=== PATIENT | female | born 1955 | race Caucasian/White ===

== ENCOUNTER 2021-02-02 05:37 | Inpatient (IN) | payer BC, MEDICARE ==
[2021-02-02] MEDS ORDERED: Bupivacaine 0.5% 30 ML SDV ONE (06:36)
[2021-02-02] MEDS ORDERED: Povidone-Iodine 10% Soln 118.25 ML Bottle ONE (06:36)
[2021-02-02] MEDS ORDERED: ceFAZolin 2 GM in Sodium Chloride 0.9% 100 ML IV ONE (07:00)
[2021-02-02] MEDS ORDERED: Lactated Ringers 1,000 ML IV SCH (07:00)
[2021-02-02] MEDS ORDERED: Propofol 200 MG/20 ML SDV ONE (07:22)
[2021-02-02] MEDS ORDERED: Midazolam 1 MG/ML 2 ML SDV ONE ×2 (07:22→08:29)
[2021-02-02] MEDS ORDERED: fentaNYL 100 MCG/2 ML SDV ONE (07:22)
[2021-02-02] MEDS ORDERED: ceFAZolin 2 GM in Premix Bag 1 BAG IV ONE (07:30)
[2021-02-02] MEDS ORDERED: Lactated Ringers 1,000 ML ONE (08:15)
[2021-02-02] MEDS ORDERED: Acetaminophen 325 MG Tab PO PRN (09:20)
[2021-02-02] MEDS ORDERED: ceFAZolin 1 GM in Sodium Chloride 0.9% 50 ML IV SCH (09:30)
[2021-02-02] MEDS ORDERED: Sodium Chloride 0.9% 1,000 ML IV SCH (09:30)
[2021-02-02] MEDS: Morphine 2 MG/ML SYRINGE IVPUSH PRN ×3 (10:46→22:32)
[2021-02-02] MEDS: Ketorolac 30 MG/ML SDV IVPUSH PRN ×2 (10:55→21:38)
[2021-02-02] MEDS: Acetaminophen/oxyCODONE 325-5 MG Tab PO PRN ×4 (11:27→23:55)
[2021-02-02] MEDS: Triamcinolone Acetonide 0.1% Crm 15 GM Tube TOP SCH ×2 (14:11→21:46)
--- NOTE | 2021-02-02 16:03 | OR ---
DATE OF PROCEDURE: 02/02/2021 SURGEON: Richardson Sullivan MD PREOPERATIVE DIAGNOSIS: Osteoarthritis, medial compartment, left knee. POSTOPERATIVE DIAGNOSIS: Osteoarthritis, medial compartment, left knee. PROCEDURE PERFORMED: Left medial unicompartmental arthroplasty utilizing [employer] Oxin[employer] components with a size D femur, 2 tibia, [address] HIGHWAY MAINTAINER: AMIRA Isbell ANESTHESIA: Spinal with sedation. INDICATIONS: Ivonne is a 65-year-old female with a history of medial knee pain after a fall. X-ray and MRI reveal medial meniscus tear and degenerative changes of the medial compartment with articular cartilage loss and subchondral edema. Patellofemoral and lateral compartments appear intact, and she therefore presents for a medial unicompartmental arthroplasty. Risks, benefits, and potential complications of the procedure were discussed. DESCRIPTION OF PROCEDURE: After adequate anesthesia was obtained, the patient was placed supine with a tourniquet about the left upper thigh. The left leg was prepped and draped in a sterile fashion. Leg was exsanguinated and tourniquet inflated to 300 mmHg pressure. A longitudinal incision was made just slightly medial of midline and carried down through the subcutaneous tissues, and a medial parapatellar arthrotomy was performed. The anterior horn of the medial meniscus was excised. The knee was flexed and the articular cartilage inspected with a full-thickness cartilage loss in the majority of the weightbearing surface of the medial femoral condyle. The anterior lip of the tibial plateau was resected. The leg was extended, and the extramedullary alignment jig was aligned and secured to the femur and tibia. Distal femoral cut was then made. This portion of the guide was removed. The knee was flexed, and the proximal tibia was resected with reciprocating and oscillating saws. Remaining meniscus was excised. The knee was flexed, and the 8 mm gapper with the femoral cutting jig was placed with the D showing excellent fit. This was secured to the femur. Peg holes and remaining cuts were then made. The guide was removed along with the bone cuts. Tibia was then sized to a 2 component. A 2 trial was tapped into position. Peg holes were drilled. The femoral trial was placed, and the knee was then trialed with an 8 mm spacer. This was excessively tight in both flexion and extension, and the 2 mm spacer could not be inserted. The tibia was recut at an additional 2 mm. Trials were again placed with an 8 mm spacer then showing good balance in flexion and extension with 2 mm gap. Trials were removed. The knee was thoroughly irrigated with pulse lavage. The bone surfaces were dried. Components were cemented in place. Excess cement was removed, and the knee was held in full extension with the trial insert and the 2 mm spacing gap as the cement cured. The knee was again taken through range of motion. Balance was checked with a 2 mm spacer. The trial was removed. The final 8 mm polyethylene was snapped into position. The knee was irrigated once again. This was followed by a dilute Betadine irrigation which was left in place for 2 minutes and then irrigated with pulse lavage. The medial capsule was closed with #2 Ethibond in a running fashion. Skin was closed with 2-0 Vicryl and a running 3-0 Monocryl. Steri-Strips were applied. Sterile dressing was then placed with a light compressive dressing. The patient tolerated the procedure well. There were no complications. Tourniquet time was 58 minutes. She was taken from the operating room in stable condition. Richardson Sullivan MD /[id number]
[2021-02-02] MEDS: Nozin Nasal Sanitizer NASBOTH SCH ×3 (17:28→21:45)
[2021-02-02] MEDS: ceFAZolin 1 GM in Premix Bag 1 BAG IV SCH (17:39)
[2021-02-02] MEDS: Ondansetron 4 MG/2 ML SDV IVPUSH PRN (21:39)
[2021-02-02] MEDS: Docusate Sodium 100 MG Cap PO SCH (21:48)
[2021-02-03] MEDS: ceFAZolin 1 GM in Premix Bag 1 BAG IV SCH ×2 (03:14→10:57)
[2021-02-03] MEDS: Acetaminophen/oxyCODONE 325-5 MG Tab PO PRN ×2 (04:34→08:28)
[2021-02-03] MEDS: Enoxaparin 30 MG/0.3 ML Syringe SUBCUT SCH (08:04)
[2021-02-03] MEDS: Nozin Nasal Sanitizer NASBOTH SCH ×2 (08:04→21:00)
[2021-02-03] MEDS: Docusate Sodium 100 MG Cap PO SCH ×2 (08:04→21:00)
[2021-02-03] MEDS: Ferrous Sulfate 325 MG Tab PO SCH (08:04)
[2021-02-03] MEDS: Triamcinolone Acetonide 0.1% Crm 15 GM Tube TOP SCH ×3 (08:04→21:00)
--- NOTE | 2021-02-03 08:26 | PCM.SURGPN ---
- General Info Date of Service: 02/03/21 Date of Surgery/Procedure: 02/02/21 POD#: 1 Functional Status: Reports: Tolerating Diet - Review of Systems General: Denies: Fever, Malaise, Chills HEENT: Denies: Visual Changes Pulmonary: Denies: Shortness of Breath Cardiovascular: Denies: Chest Pain, Palpitations Gastrointestinal: Denies: Nausea, Vomiting Musculoskeletal: Reports: Leg Pain (left ), Joint Pain (left knee ), Joint Swelling (left knee ) Neurological: Reports: No Symptoms Psychiatric: Reports: No Symptoms - Patient Data Vitals - Most Recent: Last Vital Signs Temp 95.8 F L 02/03/21 08:02 Pulse 68 02/03/21 08:02 Resp 16 02/03/21 08:02 BP 139/75 02/03/21 08:02 Pulse Ox 95 02/03/21 08:02 Weight - Most Recent: 168 lb 12.8 oz I&O - Last 24 Hours: Intake & Output 02/02/21 02/03/21 02/03/21 22:59 06:59 14:59 Intake Total 3557 Output Total 950 650 Balance 2607 -650 Lab Results Last 24 Hrs: Laboratory Results - last 24 hr 02/03/21 Range/Units 04:10 WBC 6.9 (4.5-11.0) K/uL RBC 3.76 (3.30-5.50) M/uL Hgb 11.5 L (12.0-15.0) g/dL Hct 34.9 L (36.0-48.0) % MCV 93 (80-98) fL MCH 31 (27-31) pg MCHC 33 (32-36) % Plt Count 207 (150-400) K/uL Med Orders - Current: Current Medications Acetaminophen (Acetaminophen 325 Mg Tab) 650 mg PO Q4H PRN PRN Reason: Pain/Fever Hydrocodone Bitart/Acetaminophen (Acetaminophen/Hydrocodone 325-5 Mg Tab) 1 tab PO Q4H PRN PRN Reason: Pain (mild 1-3) Bandage/Support Products (Nozin Nasal Juice Scaleman) 1 applic NASBOTH BID [facility] Last Admin: 02/03/21 08:04 Dose: 1 applic Documented by: Docusate Sodium (Docusate Sodium 100 Mg Cap) 100 mg PO BID [facility] Last Admin: 02/03/21 08:04 Dose: 100 mg Documented by: Enoxaparin Sodium (Enoxaparin 30 Mg/0.3 Ml Syringe) 30 mg SUBCUT DAILY [facility] Last Admin: 02/03/21 08:04 Dose: 30 mg Documented by: Ferrous Sulfate (Ferrous Sulfate 325 Mg Tab) 325 mg PO DAILY [facility] Last Admin: 02/03/21 08:04 Dose: 325 mg Documented by: Sodium Chloride (Normal Saline) 1,000 mls @ 125 mls/hr IV ASDIRECTED [facility] Last Admin: 02/02/21 16:28 Dose: 125 mls/hr Documented by: Cefazolin Sodium/Dextrose 1 gm (/ Premix) 50 mls @ 100 mls/hr IV Q8H [facility] Stop: 02/03/21 10:59 Last Admin: 02/03/21 03:14 Dose: 100 mls/hr Documented by: Ketorolac Tromethamine (Ketorolac 30 Mg/Ml Sdv) 15 mg IVPUSH Q8H PRN PRN Reason: Breakthrough Pain Last Admin: 02/02/21 21:38 Dose: 15 mg Documented by: Morphine Sulfate (Morphine 2 Mg/Ml Syringe) 1 mg IVPUSH Q1H PRN PRN Reason: Breakthrough Pain Last Admin: 02/02/21 22:32 Dose: 1 mg Documented by: Ondansetron HCl (Ondansetron 4 Mg/2 Ml Sdv) 4 mg IVPUSH Q4H PRN PRN Reason: Nausea/Vomiting Last Admin: 02/02/21 21:39 Dose: 4 mg Documented by: Oxycodone/Acetaminophen (Acetaminophen/Oxycodone 325-5 Mg Tab) 1 - 2 tab PO Q4H PRN PRN Reason: Pain Last Admin: 02/03/21 04:34 Dose: 2 tab Documented by: Triamcinolone Acetonide (Triamcinolone Acetonide 0.1% Crm 15 Gm Tube) 0 gm TOP TID [facility] Last Admin: 02/03/21 08:04 Dose: Not Given Documented by: Discontinued Medications Bandage/Support Products (Nozin Nasal Juice Scaleman) 1 applic NASBOTH BID [facility] Last Admin: 02/02/21 17:29 Dose: Not Given Documented by: Bupivacaine HCl (Bupivacaine 0.5% 30 Ml Sdv) Confirm Administered Dose 30 ml .ROUTE .STK-MED ONE Stop: 02/02/21 06:37 Fentanyl (Fentanyl 100 Mcg/2 Ml Sdv) Confirm Administered Dose 100 mcg .ROUTE .STK-MED ONE Stop: 02/02/21 07:23 Lactated Ringer's (Ringers, Lactated) 1,000 mls @ 75 mls/hr IV ASDIRECTED [facility] Last Admin: 02/02/21 06:03 Dose: 75 mls/hr Documented by: Cefazolin Sodium/Dextrose 2 gm (/ Premix) 50 mls @ 50 mls/hr IV ONETIME ONE Stop: 02/02/21 08:29 Last Admin: 02/02/21 11:10 Dose: 50 mls/hr Documented by: Lactated Ringer's (Ringers, Lactated) Confirm Administered Dose 1,000 mls @ as directed .ROUTE .STK-MED ONE Stop: 02/02/21 08:16 Midazolam HCl (Midazolam 1 Mg/Ml 2 Ml Sdv) Confirm Administered Dose 2 mg .ROUTE .STK-MED ONE Stop: 02/02/21 07:23 Midazolam HCl (Midazolam 1 Mg/Ml 2 Ml Sdv) Confirm Administered Dose 2 mg .ROUTE .STK-MED ONE Stop: 02/02/21 08:30 Povidone Iodine (Povidone-Iodine 10% Soln 118.25 Ml Bottle) Confirm Administered Dose 1 ml .ROUTE .STK-MED ONE Stop: 02/02/21 06:37 Propofol (Propofol 200 Mg/20 Ml Sdv) Confirm Administered Dose 200 mg .ROUTE .STK-MED ONE Stop: 02/02/21 07:23 - Exam Wound/Incisions: Healing Well, Dressing Dry and Intact, No Drainage Quality Assessment: Urine Catheter, DVT Prophylaxis General: Alert, Oriented, Cooperative Extremities: Pedal Edema, Joint Swelling (left knee ), Leg Pain (left ), Limited Range of Motion (due to postoperative dressing, ). No: Marilyn's Sign Skin: Dry, Intact Neurological: No New Focal Deficit Psy/Mental Status: Alert, Normal Affect, Normal Mood Sepsis Event Note - Evaluation Sepsis Screening Result: No Definite Risk - Focused Exam Vital Signs: Vital Signs Temp Pulse Resp BP Pulse Ox 02/03/21 08:02 95.8 F L 68 16 139/75 95 02/03/21 03:14 95.9 F L 67 18 148/80 H 94 L 02/02/21 22:27 170/88 H 02/02/21 22:00 95.8 F L 62 18 93 L - Problem List & Annotations (1) Status post left partial knee replacement SNOMED Code(s): 428572507, 54914217, 009157471, 284234872 Code(s): Z96.652 - PRESENCE OF LEFT ARTIFICIAL KNEE JOINT Status: Acute Current Visit: Yes (2) Postoperative anemia SNOMED Code(s): 851869639, 780949356 Code(s): D64.9 - ANEMIA, UNSPECIFIED Status: Acute Current Visit: Yes - Problem List Review Problem List Initiated/Reviewed/Updated: Yes - My Orders Last 24 Hours: Active Orders 24 hr Category Date Time Status Patient Status [ADT] Routine ADT 02/02/21 09:20 Active Ambulate [RC] QID Care 02/02/21 09:20 Active Head of Bed Elevation [RC] ASDIRECTED Care 02/02/21 09:20 Active May Shower [RC] ASDIRECTED Care 02/02/21 09:20 Active Neurovascular Check [RC] Q4H Care 02/02/21 09:20 Active Oxygen Therapy [RC] PRN Care 02/02/21 09:20 Active Pneumonia Education [RC] UPON Care 02/02/21 09:20 Active RT Incentive Spirometry [RC] Q1HWA Care 02/02/21 09:20 Active Up to Chair [RC] QID Care 02/02/21 09:20 Active VTE/DVT Education [RC] Click to Edit Care 02/02/21 09:20 Active Wound Care [RC] Q12H Care 02/02/21 09:20 Active Consult to Case Management/Video Editor [CONS] Cons 02/02/21 09:20 Active Routine OT Evaluation and Treatment [CONS] Routine Cons 02/02/21 09:20 Active PT Evaluation and Treatment [CONS] Routine Cons 02/02/21 09:20 Active PT Evaluation and Treatment [CONS] Routine Cons 02/02/21 09:20 Active Regular Diet [DIET] Diet 02/02/21 Breakfast Active Knee 1V or 2V Lt [CR] Routine Exams 02/02/21 09:20 Taken Acetaminophen [TylenoL] Med 02/02/21 09:20 Active 650 mg PO Q4H PRN Acetaminophen/HYDROcodone [[place] 325-5 MG] Med 02/02/21 09:20 Active 1 tab PO Q4H PRN Acetaminophen/oxyCODONE [Percocet 325-5 MG] Med 02/02/21 09:20 Active 1 - 2 tab PO Q4H PRN Docusate Sodium [Colace] Med 02/02/21 21:00 Active 100 mg PO BID Enoxaparin [Lovenox] Med 02/03/21 09:00 Active 30 mg SUBCUT DAILY Ferrous Sulfate Med 02/03/21 09:00 Active 325 mg PO DAILY Ketorolac [Toradol] Med 02/02/21 09:20 Active 15 mg IVPUSH Q8H PRN Morphine Med 02/02/21 09:20 Active 1 mg IVPUSH Q1H PRN Nozin [ Nasal Juice Scaleman] Med 02/02/21 21:00 Active 1 applic NASBOTH BID Ondansetron [Zofran] Med 02/02/21 09:20 Active 4 mg IVPUSH Q4H PRN Sodium Chloride 0.9% [Normal Saline] 1,000 ml Med 02/02/21 09:30 Active IV ASDIRECTED Triamcinolone Acetonide [Triamcinolone Acetonide 0.1% Med 02/02/21 14:00 Active Crm] 0 gm TOP TID ceFAZolin [Ancef 1 GM/50 ML] 1 gm Med 02/02/21 18:30 Active Premix Bag 1 bag IV Q8H Antiembolic Hose [OM.PC] Routine Oth 02/02/21 09:20 Ordered DVT/VTE Prophylaxis Reflex [OM.PC] Routine Oth 02/02/21 09:20 Ordered Ice Therapy [OM.PC] Per Unit Routine Oth 02/02/21 09:20 Ordered Medication Continuation Instructions [OM.PC] Per Unit Oth 02/02/21 09:20 Ordered Routine Oral Care [OM.PC] Routine Oth 02/02/21 09:20 Ordered Sequential Compression Device [OM.PC] Routine Oth 02/02/21 09:20 Ordered Weight bearing status [OM.PC] Routine Oth 02/02/21 09:25 Ordered Resuscitation Status Routine Resus Stat 02/02/21 09:20 Ordered Medication Orders Acetaminophen (Acetaminophen 325 Mg Tab) 650 mg PO Q4H PRN PRN Reason: Pain/Fever Hydrocodone Bitart/Acetaminophen (Acetaminophen/Hydrocodone 325-5 Mg Tab) 1 tab PO Q4H PRN PRN Reason: Pain (mild 1-3) Bandage/Support Products (Nozin Nasal Juice Scaleman) 1 applic NASBOTH BID [facility] Last Admin: 02/03/21 08:04 Dose: 1 applic Documented by: Admin: 02/02/21 21:45 Dose: 1 applic Documented by: JAIRO Docusate Sodium (Docusate Sodium 100 Mg Cap) 100 mg PO BID [facility] Last Admin: 02/03/21 08:04 Dose: 100 mg Documented by: Admin: 02/02/21 21:48 Dose: 100 mg Documented by: JAIRO Enoxaparin Sodium (Enoxaparin 30 Mg/0.3 Ml Syringe) 30 mg SUBCUT DAILY [facility] Last Admin: 02/03/21 08:04 Dose: 30 mg Documented by: ARTEMIO Ferrous Sulfate (Ferrous Sulfate 325 Mg Tab) 325 mg PO DAILY [facility] Last Admin: 02/03/21 08:04 Dose: 325 mg Documented by: ARTEMIO Sodium Chloride (Normal Saline) 1,000 mls @ 125 mls/hr IV ASDIRECTED [facility] Last Admin: 02/02/21 16:28 Dose: 125 mls/hr Documented by: JAIRO Cefazolin Sodium/Dextrose 1 gm (/ Premix) 50 mls @ 100 mls/hr IV Q8H [facility] Stop: 02/03/21 10:59 Last Admin: 02/03/21 03:14 Dose: 100 mls/hr Documented by: Infusion: 02/02/21 18:09 Dose: 100 mls/hr Documented by: Admin: 02/02/21 17:39 Dose: 100 mls/hr Documented by: JAIRO Ketorolac Tromethamine (Ketorolac 30 Mg/Ml Sdv) 15 mg IVPUSH Q8H PRN PRN Reason: Breakthrough Pain Last Admin: 02/02/21 21:38 Dose: 15 mg Documented by: Admin: 02/02/21 10:55 Dose: 15 mg Documented by: KAYCEE Morphine Sulfate (Morphine 2 Mg/Ml Syringe) 1 mg IVPUSH Q1H PRN PRN Reason: Breakthrough Pain Last Admin: 02/02/21 22:32 Dose: 1 mg Documented by: Admin: 02/02/21 13:40 Dose: 1 mg Documented by: Admin: 02/02/21 10:46 Dose: 1 mg Documented by: KAYCEE Ondansetron HCl (Ondansetron 4 Mg/2 Ml Sdv) 4 mg IVPUSH Q4H PRN PRN Reason: Nausea/Vomiting Last Admin: 02/02/21 21:39 Dose: 4 mg Documented by: JAIRO Oxycodone/Acetaminophen (Acetaminophen/Oxycodone 325-5 Mg Tab) 1 - 2 tab PO Q4H PRN PRN Reason: Pain Last Admin: 02/03/21 04:34 Dose: 2 tab Documented by: Admin: 02/02/21 23:55 Dose: 2 tab Documented by: Admin: 02/02/21 19:44 Dose: 2 tab Documented by: Admin: 02/02/21 15:40 Dose: 2 tab Documented by: Admin: 02/02/21 11:27 Dose: 2 tab Documented by: KAYCEE Triamcinolone Acetonide (Triamcinolone Acetonide 0.1% Crm 15 Gm Tube) 0 gm TOP TID [facility] Last Admin: 02/03/21 08:04 Dose: Not Given Documented by: Admin: 02/02/21 21:46 Dose: Not Given Documented by: Admin: 02/02/21 14:11 Dose: Not Given Documented by: KAYCEE - Assessment Assessment (Free Text/Narrative):: Patient is a very pleasant 65-year-old female, status post left partial knee arthroplasty of the medial compartment, postop day #1. Patient had no acute events overnight. Patient remains hemodynamically stable. Blood pressures have been slightly elevated, likely attributed to postoperative pain. Patient has had a difficult time with pain control postoperatively. Was nauseous yesterday with administration of pain medication, patient had not eaten prior to medication administration. Has since been eating something to coincide with administration of pain medication and reports less nausea. Patient did transfer from bed to chair yesterday evening with FWW and nursing staff. Did become flushed and lightheaded with initial attempt at transfer, felt more stable on second attempt. Has not ambulated further than transfer to chair at this time. Endorsed throbbing in the knee at rest, made worse with motion or attempts to weight bear yesterday. Denied calf pain. Denied numbness or tingling to LLE. POD#1 HgB declined to 11.5. Patient is asymptomatic with this, denied lighthe adedness, dizziness, vision changes, nor dyspnea this morning. Patient will require inpatient status at this time to obtain adequate pain control with PO medications, post-operative anemia and vital monitoring, and for additional therapy services to progress functional mobility of left lower extremity. Exam: L LE distal neurovascular intact. L LE CIERA dressing is dry and intact. ROM to knee limited from post-operative dressing. Moderate pedal edema. Negative homans sign. Plan: * Continue with physical and occupational therapy services daily while in hospital to progress functional mobility of left lower extremity. * Continue with current pain regimen. Administer with food. * Continue with 30 mg Lovenox subcutaneous daily for chemical DVT/VTE prophylaxis. Bilateral lower extremity SCDs for mechanical prophylaxis. * Postoperative anemia stable at this time. Continue to monitor for symptoms, may recheck CBC if becomes symptomatic. * Continue to monitor q4 hours vitals. * Rosales may be discontinued, pending improved ambulation abilities after morning physical therapy. * IV maintenance fluids discontinued. * Anticipate discharge to home when patient is medically stable and functional mobility of left lower extremity improves. Plan for outpatient physical therapy services at time of discharge.
[2021-02-03] MEDS: Ondansetron 4 MG/2 ML SDV IVPUSH PRN (09:45)
[2021-02-03] MEDS: Acetaminophen/HYDROcodone 325-5 MG Tab PO PRN ×2 (12:30→19:23)
--- NOTE | 2021-02-03 14:41 | CR ---
Knee 1V or 2V Lt CLINICAL HISTORY: Hemiarthroplasty FINDINGS: Patient is status post medial hemiarthroplasty. Components appear well seated. There is intra-articular and subcutaneous air. IMPRESSION: STATUS post medial hemiarthroplasty
[2021-02-03] MEDS: Ketorolac 30 MG/ML SDV IVPUSH PRN (18:07)
[2021-02-03] MEDS ORDERED: Magnesium Hydroxide 400 MG/5 ML Susp 30 ML Cup PO PRN (19:33)
[2021-02-03] MEDS ORDERED: Cyclobenzaprine 10 MG Tab PO PRN (19:34)
[2021-02-04] MEDS: traMADol 50 MG Tab PO PRN ×2 (00:53→13:06)
[2021-02-04] MEDS: Ketorolac 30 MG/ML SDV IVPUSH PRN (07:48)
--- NOTE | 2021-02-04 08:19 | PCM.DCSUM1 ---
Discharge Summary - Hospital Course HPI Initial Comments: Patient is a very pleasant 65 y/o female, who endured a fall in early December while hiking, lead to significant left knee pain. MRI revealed left knee complex meniscus tear, osteochondral defect along the medial femoral condyle, and significant articular cartilage loss along the medial compartment. Because of the osteochondral defect and the articular cartilage loss, a meniscectomy would not have provided lasting relief for patient, so Dr. Sullivan recommended a left partial knee arthroplasty of the medial compartment. Patient was agreeable to this procedure. Underwent a left medial partial knee arthroplasty on 02/02/21. Surgery went well with no complications. No acute events while in the hospital during the postoperative hospitalization period. Diagnosis: Stroke: No Modified Cleveland Scale: No Symptoms at All Modified Rupinder Scale Score: 0 - Discharge Data Discharge Date: 02/04/21 Discharge Disposition: Home, Self-Care 01 Condition: Good - Referral to Home Health Date of Face to Face Encounter: 02/04/21 Primary Care Physician: Zuhair Sorto MD - Discharge Diagnosis/Problem(s) (1) Status post left partial knee replacement SNOMED Code(s): 802428189, [id number], 822624023, 324890061 ICD Code: Z96.652 - PRESENCE OF LEFT ARTIFICIAL KNEE JOINT Status: Acute Current Visit: Yes (2) Postoperative anemia SNOMED Code(s): 949930863, 173936754 ICD Code: D64.9 - ANEMIA, UNSPECIFIED Status: Acute Current Visit: Yes - Patient Summary/Data Operative Procedure(s) Performed: left knee partial medial arthroplasty Consults: Consultations 02/02/21 09:20 Consult to Case Management/Functional Director [CONS] Routine Comment: Physician Instructions: Service(s) to be Consulted: Case Management Reason for Consult: Plan for Discharge Special Instructions: anticipate to dc home with outpatient PT OT Evaluation and Treatment [CONS] Routine Please Evaluate and Treat. OT Reason for Consult: adls Special Instructions: s/p left partial knee arthroplasty, medial compartment WBAT This query below is only for informational purposes and is not editable. PT Evaluation and Treatment [CONS] Routine Please Evaluate and Treat. PT Reason for Consult: Post op Ortho Surgery Special Instructions: s/p left medial partial knee arthroplasty WBAT This query below is only for informational purposes and is not editable. PT Evaluation and Treatment [CONS] Routine Please Evaluate and Treat. PT Reason for Consult: Post op Ortho Surgery Knee Pending Discharge: Yes, 1- 2 days Special Instructions: Schedule first outpatient PT appointment in 3-5 day post discharge. s/p L partial knee arthroplasty, medial compartment This query below is only for informational purposes and is not editable. Hospital Course: Pleasant 65 y/o female, status post left partial knee arthroplasty of the medial compartment, DOS: 02/01/21. Patients surgery went well with no complications. Patient did have some intermittent hypertension following surgery, likely attributed to poor pain control. All other vitals are within normal limits. POD#1 HgB declined to 11.5. Patient was asymptomatic with this. Denied lightheadedness, dizziness, vision changes, nor dyspnea. Patient had a difficult time with adequate pain control postoperatively. Had nausea and emesis with Percocet. Initially was thought because patient did not take with food, but into POD#1, pain medication was administered with food and she continued to have nausea. Transition was made to Tramadol and patient reports adequate pain control without nausea. Tolerated regular diet well. Patient participated in PT and OT services daily while in the hospital. Ambulation abilities progressed nicely, walking up to 100+ ft with FWW and SBA. Demonstrated competency getting left leg into and out of bed. Patient also safely demonstrated ability to complete stairs. Minimal assistance needed with ADLs. IV maintenance fluids were discontinued on the evening of surgery. Rosales catheter discontinued on POD#1. Dressing change performed on POD#1 and #2. - Patient Instructions Diet: Usual Diet as Tolerated Activity: Apply Ice, Full Weight Bearing, Rest and Relax Today Driving: Do Not Drive Showering/Bathing: Shower in AM Wound/Incision Care: Keep Operative Site/Wound Site Clean and Dry, Change Dressing Daily Notify Provider of: Fever, Increased Pain, Swelling and Redness, Drainage - Discharge Plan *PRESCRIPTION DRUG MONITORING PROGRAM REVIEWED*: Yes *COPY OF PRESCRIPTION DRUG MONITORING REPORT IN PATIENT JUSTINO: Not Applicable Prescriptions/Med Rec: traMADol [Ultram] 50 mg PO Q4H PRN #40 tab PRN Reason: Pain (Severe 7-10) Home Medications: Home Meds Cyanocobalamin (Vitamin B12) [Vitamin B12] 1,000 mcg IM .MONTHLY 11/10/20 [History] Calcium Carbonate [Calcium] 600 mg PO DAILY 11/11/20 [History] Ferrous Sulfate [Slow Release Iron] 65 mg PO DAILY 11/11/20 [History] Gelatin 1,300 mg PO DAILY 11/11/20 [History] Glucosam/MSM/Chond/Bosw/Hyalur [Wnyekpmmnpg-Vmforn-KAP Caplet] 1 tab PO DAILY 11/11/20 [History] Grape Seed Xt/Bioflavon,Gaines [Grape Seed 50 mg Capsule] 1 tab PO DAILY 11/11/20 [History] Pyridoxine HCl (Vitamin B6) [Vitamin B-6] 100 mg PO DAILY 11/11/20 [History] Red Yeast Rice 600 mg PO DAILY 11/11/20 [History] Ubidecarenone [Co Q-10] 300 mg PO DAILY 11/11/20 [History] Cholecalciferol (Vitamin D3) [Vitamin D3] 1,000 unit PO DAILY 01/19/21 [History] Collagen, Hydrolysate (Bovine) [Collagen Hydrolysate] 40 mg PO DAILY 01/19/21 [History] Magnesium Citrate 250 mg PO DAILY 01/19/21 [History] Multivitamin [Multi-Vitamin Daily] 1 tab PO DAILY 01/19/21 [History] Redmon-3S/DHA/Epa/Fish Oil [Redmon-3 Fish Oil 1,200 mg Sfgl] 1,000 mg PO DAILY 01/19/21 [History] Triamcinolone Acetonide [Triamcinolone Acetonide 0.1% Crm] 1 applic TOP TID 01/19/21 [History] Aspirin [Halfprin] 81 mg PO DAILY 01/25/21 [History] traMADol [Ultram] 50 mg PO Q4H PRN #40 tab 02/04/21 [Rx] Oxygen Therapy Mode: Room Air Referrals: Richardson Sullivan MD [Physician] - 02/17/21 11:45 am (Please arrive 15 minutes early to register for your appointment and register at the er desk.) Argenis Hwang PT [Physical Therapist] - 02/08/21 8:30 am (Please arrive 15 minutes early to register for your appointment.) - Discharge Summary/Plan Comment DC Time >30 min.: No Total # of Minutes for Discharge Time: 20 Discharge Summary/Plan Comment: -Discharge to home today with outpatient physical therapy. -Prescription sent for pain control: 50 mg Tramadol q4 hrs prn for pain. -Encouraged continuation of stool softener while on opioid pain medication. -Educated patient on warning signs of DVT/VTE and SSI; any concerns, should contact the clinic or visit local ER. -Educated to take 1 aspirin (81 mg or 325 mg) BID for DVT/VTE prophylaxis. -Continue with Nozin spray BID. -Encouraged to purchase BP cuff and monitor BPs at home. If remain elevated over >120/80 should follow up with PCP. If >180/120 should seek emergency medical attention. -May shower; leave Steristrips on and let water run over the top. They will fall off in 5-7 days. Do not vigorously scrub incision, no submerging incision in bath water. Do not need to place dressing over incision, but may choose to do so if Steristrips are catching on clothing. -Follow up with orthopedics in 2 weeks; contact clinic with any concerns or questions that arise prior to scheduled apt. - General Info Date of Service: 02/04/21 Functional Status: Reports: Pain Controlled, Tolerating Diet, Ambulating (with FWW ), Urinating - Review of Systems General: Denies: Fever, Malaise, Chills Pulmonary: Denies: Shortness of Breath Cardiovascular: Denies: Chest Pain, Palpitations Gastrointestinal: Denies: Nausea, Vomiting Musculoskeletal: Reports: Joint Pain (left knee ), Joint Swelling (left knee ) Skin: Reports: Bruising Neurological: Reports: No Symptoms Psychiatric: Reports: No Symptoms - Patient Data Vitals - Most Recent: Last Vital Signs Temp 95.2 F L 02/04/21 05:37 Pulse 75 02/04/21 08:05 Resp 18 02/04/21 08:05 BP 150/90 H 02/04/21 08:05 Pulse Ox 98 02/04/21 08:05 Weight - Most Recent: 168 lb 12.786 oz I&O - Last 24 hours: Intake & Output 02/03/21 02/04/21 02/04/21 22:59 06:59 14:59 Intake Total 1076 800 Balance 1076 800 Med Orders - Current: Current Medications Acetaminophen (Acetaminophen 325 Mg Tab) 650 mg PO Q4H PRN PRN Reason: Pain/Fever Hydrocodone Bitart/Acetaminophen (Acetaminophen/Hydrocodone 325-5 Mg Tab) 1 tab PO Q4H PRN PRN Reason: Pain (mild 1-3) Last Admin: 02/03/21 19:23 Dose: 1 tab Documented by: Bandage/Support Products (Nozin Nasal Blanket Weaver) 1 applic NASBOTH BID [facility] Last Admin: 02/03/21 21:00 Dose: 1 applic Documented by: Docusate Sodium (Docusate Sodium 100 Mg Cap) 100 mg PO BID [facility] Last Admin: 02/03/21 21:00 Dose: 100 mg Documented by: Enoxaparin Sodium (Enoxaparin 30 Mg/0.3 Ml Syringe) 30 mg SUBCUT DAILY [facility] Last Admin: 02/03/21 08:04 Dose: 30 mg Documented by: Ferrous Sulfate (Ferrous Sulfate 325 Mg Tab) 325 mg PO DAILY [facility] Last Admin: 02/03/21 08:04 Dose: 325 mg Documented by: Sodium Chloride (Normal Saline) 1,000 mls @ 125 mls/hr IV ASDIRECTED [facility] Last Admin: 02/02/21 16:28 Dose: 125 mls/hr Documented by: Ketorolac Tromethamine (Ketorolac 30 Mg/Ml Sdv) 15 mg IVPUSH Q8H PRN PRN Reason: Breakthrough Pain Last Admin: 02/04/21 07:48 Dose: 15 mg Documented by: Magnesium Hydroxide (Magnesium Hydroxide 400 Mg/5 Ml Susp 30 Ml Cup) 30 ml PO Q8H PRN PRN Reason: Constipation Last Admin: 02/03/21 20:59 Dose: 30 ml Documented by: Morphine Sulfate (Morphine 2 Mg/Ml Syringe) 1 mg IVPUSH Q1H PRN PRN Reason: Breakthrough Pain Last Admin: 02/02/21 22:32 Dose: 1 mg Documented by: Ondansetron HCl (Ondansetron 4 Mg/2 Ml Sdv) 4 mg IVPUSH Q4H PRN PRN Reason: Nausea/Vomiting Last Admin: 02/03/21 09:45 Dose: 4 mg Documented by: Oxycodone/Acetaminophen (Acetaminophen/Oxycodone 325-5 Mg Tab) 1 - 2 tab PO Q4H PRN PRN Reason: Pain Last Admin: 02/03/21 08:28 Dose: 2 tab Documented by: Tramadol HCl (Tramadol 50 Mg Tab) 50 mg PO Q4H PRN PRN Reason: Pain Last Admin: 02/04/21 00:53 Dose: 50 mg Documented by: Triamcinolone Acetonide (Triamcinolone Acetonide 0.1% Crm 15 Gm Tube) 0 gm TOP TID [facility] Last Admin: 02/03/21 21:00 Dose: Not Given Documented by: Discontinued Medications Bandage/Support Products (Nozin Nasal Blanket Weaver) 1 applic NASBOTH BID [facility] Last Admin: 02/02/21 17:29 Dose: Not Given Documented by: Bupivacaine HCl (Bupivacaine 0.5% 30 Ml Sdv) Confirm Administered Dose 30 ml .ROUTE .STK-MED ONE Stop: 02/02/21 06:37 Cyclobenzaprine HCl (Cyclobenzaprine 10 Mg Tab) 5 mg PO ONETIME PRN PRN Reason: Spasms Last Admin: 02/03/21 20:59 Dose: 5 mg Documented by: Fentanyl (Fentanyl 100 Mcg/2 Ml Sdv) Confirm Administered Dose 100 mcg .ROUTE .STK-MED ONE Stop: 02/02/21 07:23 Lactated Ringer's (Ringers, Lactated) 1,000 mls @ 75 mls/hr IV ASDIRECTED [facility] Last Admin: 02/02/21 06:03 Dose: 75 mls/hr Documented by: Cefazolin Sodium/Dextrose 2 gm (/ Premix) 50 mls @ 50 mls/hr IV ONETIME ONE Stop: 02/02/21 08:29 Last Admin: 02/02/21 11:10 Dose: 50 mls/hr Documented by: Lactated Ringer's (Ringers, Lactated) Confirm Administered Dose 1,000 mls @ as directed .ROUTE .STK-MED ONE Stop: 02/02/21 08:16 Cefazolin Sodium/Dextrose 1 gm (/ Premix) 50 mls @ 100 mls/hr IV Q8H [facility] Stop: 02/03/21 10:59 Last Admin: 02/03/21 10:57 Dose: 100 mls/hr Documented by: Midazolam HCl (Midazolam 1 Mg/Ml 2 Ml Sdv) Confirm Administered Dose 2 mg .ROUTE .STK-MED ONE Stop: 02/02/21 07:23 Midazolam HCl (Midazolam 1 Mg/Ml 2 Ml Sdv) Confirm Administered Dose 2 mg .ROUTE .STK-MED ONE Stop: 02/02/21 08:30 Povidone Iodine (Povidone-Iodine 10% Soln 118.25 Ml Bottle) Confirm Administered Dose 1 ml .ROUTE .STK-MED ONE Stop: 02/02/21 06:37 Propofol (Propofol 200 Mg/20 Ml Sdv) Confirm Administered Dose 200 mg .ROUTE .STK-MED ONE Stop: 02/02/21 07:23 - Exam General: Reports: Alert, Oriented, Cooperative, No Acute Distress Extremities: Normal Capillary Refill, Pedal Edema, Joint Swelling (left knee ), Leg Pain (left ), Limited Range of Motion (left knee ), Other (tibial pulse, 2+. Sensation to LLE intact). No: Marilyn's Sign Skin: Reports: Dry, Intact, Ecchymosis Wound/Incisions: Reports: Healing Well, Dressing Dry and Intact, No Drainage Neurological: Reports: No New Focal Deficit Psy/Mental Status: Reports: Alert, Normal Affect, Normal Mood
[2021-02-04] MEDS: Nozin Nasal Sanitizer NASBOTH SCH (08:48)
[2021-02-04] MEDS: Ferrous Sulfate 325 MG Tab PO SCH (08:48)
[2021-02-04] MEDS: Triamcinolone Acetonide 0.1% Crm 15 GM Tube TOP SCH (08:48)
[2021-02-04] MEDS: Docusate Sodium 100 MG Cap PO SCH (08:48)
[2021-02-04] MEDS: Enoxaparin 30 MG/0.3 ML Syringe SUBCUT SCH (08:48)
== END 2021-02-04 13:32 | disposition home or self-care (01) | DRG 302 ==
LOC: JP.SDS 05:37 → EDSTATUS 07:30 → JP.MS 09:20 → JP.SDS 09:20 → JP.MS 02-03 15:03
PROVIDERS: ADMIT Specialist; ATTEND Specialist
PROC: 0SRD0L9 Replacement of Left Knee Joint with Medial Unicondylar Synthetic Substitute, Cemented, Open Approach (ICD-10-PCS; principal; 2021-02-02)
DX: M17.12 Unilateral primary osteoarthritis, left knee (principal); M23.204 Derangement of unspecified medial meniscus due to old tear or injury, left knee; D64.89 Other specified anemias; E78.00 Pure hypercholesterolemia, unspecified; E53.8 Deficiency of other specified B group vitamins; E66.9 Obesity, unspecified; Z98.84 Bariatric surgery status; Z88.0 Allergy status to penicillin; Z68.29 Body mass index [BMI] 29.0-29.9, adult
CPT/HCPCS: 36415; 73560-26-LT; 73560-LT; 80053; 85027; 97110-GP; 97116-GP; 97162-GP; 97165-GO; 97530-GP; 97535-GP; A9270-GY; C1713; J0690; J1650; J1885; J2250; J2270; J2405; J2704; J3010; J3490; J7030; J7120; U0002